=== PATIENT | female | born 1995 | race Caucasian/White ===

== ENCOUNTER 2017-10-24 00:07 | Emergency (ER) | payer OTHER ==
[~2017-10-24] VITALS: Ht 167.6 cm; Wt 65.9 kg
[2017-10-24] MEDS ORDERED: ZOLOFT50 MG PO (00:23)
[2017-10-24] MEDS ORDERED: AMOXICILLIN500 MG PO (03:07)
[2017-10-24] MEDS ORDERED: LORTAB 1010 MG PO (03:07)
[2017-10-24 03:18] VITALS: BP 126/89
== END 2017-10-24 03:18 | disposition home or self-care (01) | DRG 605 ==
LOC: ED 00:07
DX: S51.012A Laceration without foreign body of left elbow, initial encounter (principal); S13.4XXA Sprain of ligaments of cervical spine, initial encounter; S80.212A Abrasion, left knee, initial encounter; S60.812A Abrasion of left wrist, initial encounter; V50.1XXA Passenger in pick-up truck or van injured in collision with pedestrian or animal in nontraffic accident, initial encounter; Y92.488 Other paved roadways as the place of occurrence of the external cause